=== PATIENT | male | born 1975 | race Caucasian/White ===

== ENCOUNTER 2018-03-25 22:48 | Emergency (ER) | payer OTHER, MEDICAID ==
[~2018-03-25] VITALS: Ht 165.1 cm; Wt 70.3 kg
[2018-03-26 02:09] VITALS: BP 139/96
== END 2018-03-26 03:41 | disposition home or self-care (01) ==
LOC: ER 22:48 → EDBD 22:48 → ER 03-26 03:41
DX: G40.909 Epilepsy, unspecified, not intractable, without status epilepticus (principal); R41.82 Altered mental status, unspecified; R42 Dizziness and giddiness; R53.1 Weakness
CPT/HCPCS: 70450